=== PATIENT | female | born 1975 | race Two or more races ===

== ENCOUNTER 2022-07-13 12:45 | Inpatient (IN) | payer OTHER ==
[~2022-07-13] VITALS: Ht 162.6 cm; Wt 72.6 kg
== END 2022-07-17 09:55 | disposition home or self-care (01) | DRG 738 ==
LOC: O/R 07-15 05:31 → OB/GYN 07-15 05:31 → SURG 07-15 07:00 → OB/GYN 07-15 10:56 → SURG 07-15 12:45 → OB/GYN 07-17 09:55
PROVIDERS: ADMIT Specialist; ATTEND Specialist
PROC: 0DNW0ZZ Release Peritoneum, Open Approach (ICD-10-PCS; 2022-07-15)
PROC: 0U520ZZ Destruction of Bilateral Ovaries, Open Approach (ICD-10-PCS; principal; 2022-07-15 07:00)
DX: D39.10 Neoplasm of uncertain behavior of unspecified ovary (principal); Z20.822 Contact with and (suspected) exposure to COVID-19; N73.6 Female pelvic peritoneal adhesions (postinfective)

== ENCOUNTER 2022-07-21 14:57 | Inpatient (IN) | payer OTHER ==
[~2022-07-21] VITALS: Ht 162.6 cm; Wt 70.3 kg
== END 2022-07-23 17:57 | disposition home or self-care (01) | DRG 390 ==
LOC: OB/GYN 14:57
PROVIDERS: ADMIT Obstetrics & Gynecology; ATTEND Obstetrics & Gynecology
PROC: BW21Y0Z Computerized Tomography (CT Scan) of Abdomen and Pelvis using Other Contrast, Unenhanced and Enhanced (ICD-10-PCS; principal; 2022-07-21)
DX: K56.0 Paralytic ileus (principal); D39.10 Neoplasm of uncertain behavior of unspecified ovary; Z20.822 Contact with and (suspected) exposure to COVID-19